=== PATIENT | female | born 1990 | race Caucasian/White ===

== ENCOUNTER 2020-04-26 07:46 | Inpatient (IN) ==
[2020-04-26] MEDS ORDERED: OXYTOCIN 30 UNITS/500 ML BAG IV PRN ×3 (07:57→17:03)
--- NOTE | 2020-04-26 08:00 | History & Physical Report ---
Date of Service April 26, 2020 Assessment & Plan (1) Encounter for supervision of normal in multigravida, antepartum: Admit to L&D. EFM/toco. IV. Labs. Will check glucose hourly d/t GDM. Rapid COVID swab, as this was not yet done. Urine drug screen d/t subutex use. Admission and Anticipated Discharge Date Admission Date: April 26, 2020 History of Present Illness Chief Complaint: IOL Primary Care Provider: NO PCP 30yo @ 41 06/23 here for IOL complications/plan: h/o anxiety--off meds, sees Dr. Lu at [facility] in [place], Psychiatry--doing telehealth visits h/o opiate abuse--now on subutex(since early 2019) Cleanslate [facility] dose 8mg/day --urine drug screen 12/23/19 +MJ only current MJ use--encouraged to quit. current smoker--encouraged to quit UDS on 01/20/20 all negative. Flu shot given 12/23/19 SB GDM with 28wk glucola *AC us Q 4 wks. Allergies Allergy/AdvReac Type Severity Reaction Status Date / Time No Known Allergies Allergy Verified 04/22/20 14:26 Home Medications Medication Instructions Recorded Confirmed Type buprenorphine HCl 8 mg sublingual 12 mg SUBLINGUAL DAILY tab 12/12/19 04/22/20 History tablet prenat.vits,franc,iah-qwxz-gilni 1 tab PO DAILY 12/12/19 04/22/20 History Patient History Medical History (Updated 02/24/20 @ 09:03 by Layla Schmid) Depression Surgical History (Updated 12/12/19 @ 12:09 by Layla Schmid) S/P cholecystectomy S/P dilation and curettage S/P tonsillectomy and adenoidectomy S/P wisdom tooth extraction Family History (Updated 12/12/19 @ 12:10 by Layla Schmid) Mother Anemia Thyroid disease Grandfather Diabetes Grandmother Diabetes Mother Diabetes Other Depression Social History (Updated 12/12/19 @ 12:36 by Layla Schmid) Smoking Status: Current every day smoker Cigarettes Per Day: 5 cigs/day; Hx Alcohol Use: No Hx Substance Use: Yes (hx of painkiller abuse, smokes marjuana daily for nausea) marital status: Single marital status details: José Antonio (34) [phone] Current Living Situation: Significant Other Current Living Situation Comment: lives with FOB, 2 children, 1 kitten, pt educated not to change litter. current occupational status: unemployed current occupation: homemaker Review of Systems All systems reviewed & are unremarkable except as noted in HPI & below Physical Exam Constitutional: WD/WN, vitals as above Respiratory: normal respiratory effort, lungs clear to auscultation no respiratory distress Cardiovascular: Rate/Rhythm: regular rate and regular rhythm Gastrointestinal (Abdomen): Inspection/Auscultation: abdomen normal to inspection Percussion/Palpation: abdomen soft; abdomen nontender Gravid. No s/s chorio or abruption. Skin: no rashes, warm and dry Psychiatric: A+Ox3, euthymic affect Monitoring External Monitor FHT Cat 1 [place] occ Coding Level of Care Code None Diagnoses Encounter for supervision of normal in multigravida, antepartum Z34.80
[2020-04-26 08:18] LABS: Hemoglobin 12.4 g/dL (12.0-16.0); Mean Corpuscular Hgb Conc 33.5 g/dL (32-36); Mean Corpuscular Volume 89.4 fL (80-100); Mean Platelet Volume 10.6 fL (7.4-10.4); Platelet Count 335 K/uL (130-400); RDW Coefficient of Variation 13.9 % (11.5-14.5); RDW Standard Deviation 45.2 fL (36.4-46.3); Red Blood Count 4.14 M/uL (4.2-5.4)
[2020-04-26 08:43] LABS: Amphetamines+Metham, Urine Neg (Neg); Barbiturates, Urine Neg (Neg); Benzodiazepine, Urine Neg (Neg); Cocaine, Urine Neg (Neg); MDMA (Ecstacy), Urine Neg (Neg); Methadone, Urine Neg (Neg); Opiate, Urine Neg (Neg); Phencyclidine, Urine Neg (Neg)
[2020-04-26] MEDS: LACTATED RINGER'S 1,000 ML IV PRN ×2 (09:14→14:20)
--- NOTE | 2020-04-26 14:09 | Labor Progress Brief Note ---
Date of Service April 26, 2020 Subjective Thinking she'd like to get an epidural sometime soon. FHT Cat 1 [place] Q 2-3 min SVE 6/80/-2 Anticipate . Assessment & Plan Admission and Anticipated Discharge Date Admission Date: April 26, 2020 Results & Data ([facility]) Vital Signs (Past 12 Hours) Vital Signs Temp Pulse Resp BP 04/26/20 12:31 86 124/64 04/26/20 10:18 88 113/60 04/26/20 09:56 36.7 C 04/26/20 09:20 91 H 114/56 L 04/26/20 08:02 36.7 C 20 04/26/20 08:01 99 H 137/71 Coding Level of Care Code None
[2020-04-26] MEDS ORDERED: SODIUM CHLORIDE 0.9% INJ 10 ML VIAL ONE (14:13)
[2020-04-26] MEDS ORDERED: ePHEDrine sulfate 50 MG/ML AMP ONE (14:13)
[2020-04-26] MEDS ORDERED: BUPIVACAINE 0.25% 30 ML VIAL ONE (14:14)
[2020-04-26] MEDS ORDERED: fentaNYL citrate 100 MCG/2 ML VIAL ONE (14:14)
[2020-04-26] MEDS ORDERED: fentaNYL 2MCG/ML ROPIVACAINE 1.25MG/ML 100 ML BAG EPI ONE (14:15)
[2020-04-26] MEDS: buprenorphine HCL 2 MG SUBL SL SCH ×3 (14:22→20:58)
[2020-04-26] MEDS ORDERED: fentaNYL 2MCG/ML ROPIVACAINE 1.25MG/ML 100 ML BAG EPI PRN (14:53)
[2020-04-26] MEDS ORDERED: NALOXONE HCL 1 MG in SODIUM CHLORIDE 0.9% 1000ML 1,000 ML IV PRN (14:53)
[2020-04-26] MEDS ORDERED: NALOXONE HCL 0.4 MG/1 ML VIAL/CARP IV PRN (14:53)
[2020-04-26] MEDS ORDERED: ePHEDrine sulfate 50 MG/ML AMP IV PRN (14:53)
[2020-04-26] MEDS ORDERED: ONDANSETRON INJ 2 MG/ML 2 ML VIAL IV PRN (14:53)
[2020-04-26] MEDS ORDERED: diphenhydrAMINE 50 MG/ML VIAL IV PRN (14:53)
--- NOTE | 2020-04-26 14:57 | Anesthesiology Consultation ---
Date of Service April 26, 2020 Covid 19 negative today. Assessment & Plan Chart Review Chart Review: Patient NOT seen in Pre Admission Testing and Acceptable Risk for Labor Epidural Consults Requested none ASA ASA2 Proposed Anesthesia Anesthesia Type: Labor Epidural and CSE Risk / Benefits Reviewed With: PT / POA / Parent / Guardian, Accepts Plan and Informed Consent Obtained History Height/Weight Height: 5 ft 4 in Weight: 88.451 kg Allergies Allergy/AdvReac Type Severity Reaction Status Date / Time No Known Allergies Allergy Verified 04/22/20 14:26 Medications Home Medications Medication Instructions Recorded Confirmed Last Taken buprenorphine HCl 8 mg SUBLINGUAL DAILY 04/26/20 04/26/20 04/26/20 05:00 prenat.vits,franc,buy-byes-ayevq 1 tab PO DAILY 04/26/20 04/26/20 04/26/20 05:00 [ Vitamin] Active Medications Generic Name Dose Route Start Last Admin Trade Name Freq PRN Reason Stop Dose Admin Buprenorphine HCl 2 mg 04/26/20 13:55 04/26/20 14:22 Buprenorphine Hcl 2 Mg Subl SL 05/26/20 13:54 2 mg QID ADRIANNA Administration Oxytocin 30 units in 500 mls @ 9 mls/hr 04/26/20 07:57 04/26/20 13:29 Pitocin IV 04/28/20 07:56 0.54 units/hr .Q24H PRN 9 mls/hr Labor Induction/Augmentation Titration Protocol 0.54 UNITS/HR Lactated Ringer's 1,000 mls @ 125 mls/hr 04/26/20 07:57 04/26/20 14:20 Lr IV 04/28/20 07:56 999 mls/hr .Q8H PRN Administration L&D Protocol Protocol NPO Date Last Intake of Fluids: 04/26/20 Time Last Intake of Fluids: 12:00 Date Last Intake of Solids: 04/26/20 Time Last Intake of Solids: 05:00 Past Medical History Medical History Depression Exercise / Class Metabolic Activity II 4-5 Yardwork/Stairs/Walk up hill Past Family History Family History Mother Anemia Thyroid disease Grandfather Diabetes Grandmother Diabetes Mother Diabetes Other Depression Past Surgical History Surgical History S/P cholecystectomy S/P dilation and curettage S/P tonsillectomy and adenoidectomy S/P wisdom tooth extraction Past Anesthesia History No Hx of Anesthesia Complications and No Family Hx of Anesthesia Complications History of PONV No Hx of PONV and No Hx of Motion Sickness Social History Smoking Status: Current every day smoker tobacco type: cigarettes Smoking cigarettes per day: 10 Hx Alcohol Use: No Hx Substance Use: Yes substance use type: former substance user and marijuana Review of Systems no chest pain or sob Physical Exam Vital Signs Last Vital Signs Temp 36.7 C 04/26/20 09:56 Pulse 101 H 04/26/20 14:52 Resp 20 04/26/20 09:56 BP 124/64 04/26/20 12:31 Pulse Ox 100 04/26/20 14:52 ENMT Mouth: no TMJ abnormality Thyromental Distance: > or= 3.5 Finger Breadths Mallampati Class: II Neck normal visual inspection Respiratory normal respiratory effort Auscultation: lungs clear to auscultation bilaterally Cardiovascular Rate/Rhythm: regular rate and regular rhythm Musculoskeletal Spine: normal cervical ROM Neurologic moves all extremities Psychiatric Orientation: alert and oriented x 3 Testing Laboratory Results 04/26/20 08:03 04/26/20 04/26/20 14:43 08:50 POC Glucose 79 99
--- NOTE | 2020-04-26 16:52 | Delivery Summary ---
Vaginal Delivery Summary Date of Service April 26, 2020 Vaginal Delivery Summary [facility] Vaginal Delivery Summary: Pre-delivery diagnoses: 30yo @ 41 4/7, GDMA1, anxiety, subutex use Post-delivery diagnoses: same, 1st degree perineal laceration Procedure: spontaneous vaginal delivery, repair of 1st degree perineal laceration Surgeon: gNa Jean-Baptiste DO Complications: none Findings: Viable female . Apgars: 8/9. Weight pending, please see nursery records. Estimated blood loss: 300ml Description of delivery: The patient progressed to complete with epidural anesthesia. She then began to push. She spontaneously vaginally delivered a viable from the cephalic presentation. The head delivered in LUIS ENRIQUE position. The anterior shoulder delivered, followed by the posterior shoulder, followed by the body. The baby was placed on mother's abdomen and a spontaneous cry was heard. Delayed cord clamping was employed, and the cord was doubly clamped and cut. Cord blood was obtained. The placenta was delivered spontaneously intact with a 3-vessel cord. The uterus and vagina were swept of clots and debris. IV pitocin was given. The uterus became firm. The cervix, vagina, and perineum were inspected and a 1st degree perineal laceration was noted, repaired in standard fashion with 3-0 vicryl. Excellent hemostasis was observed. The mother and baby are recovering in stable and good condition in the room. Sponge, needle and instrument counts were correct x 2. Nga Jean-Baptiste DO [facility] [place] Vaginal Delivery Codes: 75408 global code for the antepartum, delivery, and post- Delivery Type Details: [facility]
[2020-04-26] MEDS ORDERED: ACETAMINOPHEN 325 MG TAB PO PRN (17:03)
[2020-04-26] MEDS ORDERED: bisacodyL 10 MG SUPP PR PRN (17:03)
[2020-04-26] MEDS ORDERED: SUPERCREAM 0.870% 15 GM JAR EXT PRN (17:03)
[2020-04-26] MEDS ORDERED: DIPHTHERIA/TETANUS/PERTUSSIS 0.5 ML SYR/VIAL IM ONE (17:03)
[2020-04-26] MEDS ORDERED: HYDROCORTISONE ACETATE 25 MG SUPP PR PRN (17:03)
[2020-04-26] MEDS ORDERED: BENZOCAINE 20% AER SPR 82.5 GM CAN EXT PRN (17:03)
--- NOTE | 2020-04-26 18:21 | Anesthesia Procedure Note ---
Date of Service April 26, 2020 Anesthesia Post Epidural Note Vital Signs Vital Signs: Temp Pulse Resp BP Pulse Ox 36.7 C 120 H 20 124/71 100 04/26/20 09:56 04/26/20 18:10 04/26/20 09:56 04/26/20 18:10 04/26/20 16:32 Notes Mental Status: alert / awake / arousable and participated in evaluation Nausea / Vomiting: adequately controlled Pain: adequately controlled Airway Patency, RR, SpO2: stable & adequate BP & HR: stable & adequate Hydration State: stable & adequate Neuraxial Anesthesia: was administered and sensory block is resolving Anesthetic Complications: no major complications apparent and Pt Satisfied with anesthetic care Epidural: Removed without complications and With tip intact
[2020-04-26] MEDS: IBUPROFEN 600 MG TAB PO PRN (19:57)
[2020-04-26] MEDS: DOCUSATE SODIUM 100 MG CAP PO SCH (21:06)
[2020-04-27] MEDS: IBUPROFEN 600 MG TAB PO PRN ×2 (06:26→19:23)
[2020-04-27 07:05] LABS: Hematocrit (blood only) 35.8 % (37-47); Hemoglobin 11.9 g/dL (12.0-16.0)
--- NOTE | 2020-04-27 08:13 | Obstetrical Progress Note ---
Date of Service April 27, 2020 Assessment & Plan (1) Encounter for supervision of normal in multigravida, antepartum: PPD#1 doing well. Staying until tomorrow. Encourage ambulation, increase PO hydration. Subjective Ambulation: ambulating normally Voiding: no voiding problems Diet Tolerance:: regular diet Lochia:: Moderate Feeding Type:: breast feeding Review of Systems All systems reviewed & are unremarkable except as noted in HPI & below Physical Exam Constitutional WD/WN, vitals as above no acute distress Respiratory normal respiratory effort Cardiovascular Rate/Rhythm: regular rate and regular rhythm Gastrointestinal (Abdomen) Inspection/Auscultation: abdomen normal to inspection; abdomen not distended Percussion/Palpation: abdomen soft Genitourinary OB Exam Abdomen: + fundal height Fundus: + firm; not tender Results & Data ([facility] [place]) Vital Signs (Past 12 Hours) Vital Signs Temp Pulse Resp BP Pulse Ox 04/27/20 07:50 36.9 C 87 18 125/79 97 04/27/20 04:00 36.7 C 86 18 109/73 97 04/27/20 00:00 36.3 C L 88 18 109/65 98
[2020-04-27] MEDS: buprenorphine HCL 2 MG SUBL SL SCH ×4 (08:17→21:08)
[2020-04-27] MEDS: DOCUSATE SODIUM 100 MG CAP PO SCH ×2 (08:17→21:08)
[2020-04-27] MEDS: PRENATAL VITAMIN 1 TAB PO SCH (08:17)
[2020-04-27] MEDS ORDERED: bisacodyL 5 MG TABEC PO SCH (20:00)
--- NOTE | 2020-04-28 08:17 | Obstetrical Progress Note ---
Date of Service April 28, 2020 Assessment & Plan (1) Encounter for care and examination after delivery: Doing well Post day 2. Stable for discharge Subjective Ambulation: ambulating normally Voiding: no voiding problems Passing Gas:: Yes Diet Tolerance:: regular diet Lochia:: Moderate Physical Exam Constitutional WD/WN, vitals as above Respiratory normal respiratory effort; no respiratory distress and no labored breathing Gastrointestinal (Abdomen) Inspection/Auscultation: abdomen normal to inspection; abdomen not distended Percussion/Palpation: abdomen soft; abdomen nontender, no guarding and abdomen not rigid Genitourinary OB Exam Abdomen: + fundal height Fundus: + firm and + relation to umbilicus (Below); not tender and not boggy Results & Data ([facility]) Vital Signs (Past 12 Hours) Vital Signs Temp Pulse Resp BP Pulse Ox 04/28/20 08:00 36.7 C 83 18 111/73 99 04/28/20 00:30 37.1 C 76 18 119/74
[2020-04-28] MEDS: buprenorphine HCL 2 MG SUBL SL SCH ×2 (09:23→12:53)
[2020-04-28] MEDS: DOCUSATE SODIUM 100 MG CAP PO SCH (09:23)
[2020-04-28] MEDS: PRENATAL VITAMIN 1 TAB PO SCH (09:23)
== END 2020-04-28 13:40 | disposition home or self-care (01) | DRG 806 ==
LOC: 4S1 07:46 → 4S2 19:38